=== PATIENT | male | born 1945 | race Two or more races ===

== ENCOUNTER 2025-11-07 10:41 | Emergency (ER) | payer OTHER ==
[~2025-11-07] VITALS: Ht 167.6 cm; Wt 72.6 kg
[~2025-11-07 10:41] MED LIST: ASA81 MG PO; AVALIDE 150-12.1 TA1 PO; AVANDIA4 MG PO; CIPRO500 MG PO; COZAAR100 MG; CRESTOR10 MG PO; GLIPIZIDE2.5 MG/BO1 PO; KETO10TA2 PO; NORVASC5 MG PO; TOPROL XL100 MG PO; TRICOR48 MG PO
[2025-11-07 13:23] LABS: BASO % 0.9 % (0.1-1.2); EOS # 0.14 (0.04-0.54); EOS % 2.4 % (0.7-7.0); LYMPH # 0.65 (1.18-3.74); LYMPH % 11.1 % (19.3-53.1); MEAN PLATELET VOLUME 9.60 fl (9.4-12.4); MONO # 0.42 (0.24-0.82); MONO % 7.2 % (4.7-12.5); NEUT # 4.60 (1.56-6.13); NEUT % 78.2 % (34.0-71.1); RED CELL DISTRIBUTION WIDTH 12.6 % (11.6-14.4)
[2025-11-07 13:34] LABS: URINE APPEARANCE Clear; URINE BILIRRUBIN Negative (NEGATIVE); URINE BLOOD Negative; URINE COLOR Dark Yellow; URINE GLUCOSE Negative (NEGATIVE); URINE KETONE Trace (NEGATIVE); URINE LEUKOCYTE Negative; URINE NITRATE Negative; URINE PROTEIN 30 (NEGATIVE); URINE UROBILINOGEN 1.0 E.U./dl
[2025-11-07 13:39] LABS: URINE BACTERIA 22.8 uL (0.0-1933); URINE CAST 1.55 uL (0.0-1.40); URINE EPITHELIAL CELLS 7.9 uL (0.0-38.8); URINE RBC 8.4 uL (0.0-20.8); URINE WBC 4.2 uL (0.0-23.2)
[2025-11-07 14:07] LABS: BUN CREA RATIO 17.0 (7.0-25.0); CREATININE SERUM 1.33 mg/dL (0.70-1.30); GFR 51.87; GLUCOSE FASTING 131.0 mg/dL (65-100); OSMOLALITY SERUM 287.0 MOSM/KG (275-295)
[2025-11-07] MEDS ORDERED: CIPRO500 MG PO (18:45)
[2025-11-07] MEDS ORDERED: PEPCID AC20 MG PO (18:45)
[2025-11-07] MEDS ORDERED: LEVSIN/SL0.125 MG SL (18:45)
[2025-11-07] MEDS ORDERED: PROBIOTIC1 EAC2 PO (18:45)
[2025-11-07] MEDS ORDERED: METRONIDAZOLE500 MG PO (18:45)
== END 2025-11-07 20:05 | disposition home or self-care (01) ==
LOC: ER 10:42
PROVIDERS: General Practice
DX: K40.90 Unilateral inguinal hernia, without obstruction or gangrene, not specified as recurrent (principal); R10.9 Unspecified abdominal pain; K57.90 Diverticulosis of intestine, part unspecified, without perforation or abscess without bleeding; R42 Dizziness and giddiness; R10.32 Left lower quadrant pain; I10 Essential (primary) hypertension; E03.8 Other specified hypothyroidism; E11.9 Type 2 diabetes mellitus without complications; Z79.84 Long term (current) use of oral hypoglycemic drugs
CPT/HCPCS: 36415; 74177; 99284; Q9965